=== PATIENT | male | born 1965 | race Caucasian/White ===

== ENCOUNTER 2019-10-16 07:02 | Emergency (ER) | payer BC, OTHER ==
[~2019-10-16] VITALS: Ht 190.5 cm; Wt 94.3 kg
[2019-10-16] MEDS ORDERED: AUGMENTIN 875-1 EACH PO (08:02)
[2019-10-16] MEDS ORDERED: TRAMADOL 50 MG50 MG PO (08:02)
[2019-10-16 09:05] VITALS: BP 112/80
== END 2019-10-16 08:30 | disposition home or self-care (01) ==
LOC: ER 07:02
DX: S61.214A Laceration without foreign body of right ring finger without damage to nail, initial encounter (principal); S61.216A Laceration without foreign body of right little finger without damage to nail, initial encounter; S61.210A Laceration without foreign body of right index finger without damage to nail, initial encounter; S60.412A Abrasion of right middle finger, initial encounter; S50.812A Abrasion of left forearm, initial encounter; Z90.49 Acquired absence of other specified parts of digestive tract; W54.0XXA Bitten by dog, initial encounter; Y93.89 Activity, other specified; Y92.89 Other specified places as the place of occurrence of the external cause; Y99.8 Other external cause status

== ENCOUNTER 2020-06-07 02:43 | Emergency (ER) | payer BC, OTHER ==
[~2020-06-07] VITALS: Ht 190.5 cm; Wt 97.5 kg
[~2020-06-07 02:43] MED LIST: AUGMENTIN 875-1 EACH PO; TRAMADOL 50 MG50 MG PO
[2020-06-07 03:50] LABS: EOSINOPHILS 0.7 % (0.0-3.0)
[2020-06-07 03:52] LABS: ABSOLUTE NEUTROPHILS 9.1 thou/uL (1.4-8.2); BASOPHILS 0.4 % (0.0-2.0); HEMATOCRIT 47.6 % (42.0-52.0); HEMOGLOBIN 16.3 gm/dL (14.0-18.0); LYMPHOCYTES 20.8 % (24.0-44.0); MCH 31.4 pg (26.0-34.0); MCHC 34.3 g/dL (28.0-37.0); MCV 91.6 fL (80.0-100.0); MONOCYTES 5.3 % (1.0-8.0); PLATELET COUNT 228 thou/uL (150-400); POLYS 72.8 % (36.0-66.0); RBC 5.19 mil/uL (4.50-6.00); RDW 13.7 % (10.5-14.5); WBC 12.5 thou/uL (4.0-11.0)
[2020-06-07 03:54] LABS: ANION GAP 6 mmol/L (7-16); BUN 14 mg/dL (7-18); CALCIUM 9.4 mg/dL (8.5-10.1); CHLORIDE 104 mmol/L (98-107); CO2 35 mmol/L (21-32); CREATININE 1.3 mg/dL (0.7-1.3); GLUCOSE 106 mg/dL (74-106); POTASSIUM 4.1 mmol/L (3.5-5.1); SODIUM 145 mmol/L (136-145)
[2020-06-07 04:05] LABS: ALBUMIN 3.7 g/dL (3.4-5.0); LIPASE 92 U/L (73-393); SGOT 19 U/L (15-37); SGPT 28 U/L (30-65); TOTAL BILIRUBIN 0.7 mg/dL (0.2-1.0); TOTAL PROTEIN 6.9 g/dL (6.4-8.2); TROPONIN-I <0.06 ng/mL (<0.06)
[2020-06-07] MEDS ORDERED: ZOFRAN ODT4 MG PO (06:26)
[2020-06-07] MEDS ORDERED: PROTONIX40 MG PO (06:26)
[2020-06-07 06:40] VITALS: BP 112/65
[2020-06-07 06:56] LABS: HEMATOCRIT 48.6 % (42.0-52.0); HEMOGLOBIN 16.5 gm/dL (14.0-18.0); MCH 31.2 pg (26.0-34.0); MCV 91.8 fL (80.0-100.0); RBC 5.3 mil/uL (4.50-6.00); RDW 13.8 % (10.5-14.5); WBC 17.5 thou/uL (4.0-11.0)
--- NOTE | 2020-06-08 16:01 | EKG ---
[facility] [place] [address] ELECTROCARDIOGRAM REPORT Name: ANA TEIXEIRA [facility] [id number] Admission: 06/07/20 Attend Phys: Discharge: 06/07/20 Date of : 69 Report #: [id number] THIS REPORT FOR: cc: Eran Schwartz James A. DO Couchonnal, Luis F. 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
--- NOTE | 2020-06-08 16:01 | EKG ---
[facility] [place] [address] ELECTROCARDIOGRAM REPORT Name: ANA TEIXEIRA Room #: [facility].#: [id number] Admission: 06/07/20 Attend Phys: Discharge: 06/07/20 Date of : 69 Report #: [id number] THIS REPORT FOR: cc: Eran Schwartz James A. DO Couchonnal, Luis F. 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
== END 2020-06-07 06:32 | disposition home or self-care (01) ==
LOC: ER 02:43
PROVIDERS: Emergency Medicine; Student in an Organized Health Care Education/Training Program
DX: K92.2 Gastrointestinal hemorrhage, unspecified (principal); R11.10 Vomiting, unspecified; R19.7 Diarrhea, unspecified; R04.2 Hemoptysis; B20 Human immunodeficiency virus [HIV] disease; Z90.89 Acquired absence of other organs; Z98.890 Other specified postprocedural states; Z79.2 Long term (current) use of antibiotics; Z79.899 Other long term (current) drug therapy

== ENCOUNTER → 2020-06-23 | Outpatient (CLI) | payer BC, OTHER ==
[~2020-06-23] MED LIST changes: +PROTONIX40 MG PO; +ZOFRAN ODT4 MG PO
== END ==
LOC: MRI 07:15
PROVIDERS: ATTEND Family Medicine
DX: M51.27 Other intervertebral disc displacement, lumbosacral region (principal); M47.817 Spondylosis without myelopathy or radiculopathy, lumbosacral region; M48.07 Spinal stenosis, lumbosacral region

== ENCOUNTER → 2020-07-20 | Outpatient (CLI) | payer BC, OTHER ==
[~2020-07-20] VITALS: Ht 190.5 cm; Wt 95.3 kg
[~2020-07-20] MED LIST changes: +BIKTARVY 50-201 EACH PO; +CELEXA 10 MG TA10 M1 PO; +CHOLESTYRAMINE P4 GM PO; +NABUMETONE 500500 M1 PO; +PRAVACHOL40 MG PO
--- NOTE | ~2020-07-20 | HPC ---
[facility] [address] [place] [address] PAIN MANAGEMENT CONSULTATION Name: ANA TEIXEIRA Room #: REG JANETTE Pennie#: [id number] Admission: 07/20/20 Attend Phys: Eran Cleveland DO Discharge: Date of : 69 Report #: [id number] CC: Eran Hoffman DATE OF SERVICE: 07/20/2020 REFERRING PHYSICIAN: Dr. Eran Schwartz. CHIEF COMPLAINT: Low back pain, right lower extremity pain with paresthesias. HISTORY OF PRESENT ILLNESS: As you know, the patient is a very pleasant 55-year-old male who reports longstanding history of low back pain, right lower extremity pain with paresthesias. He states pain began in 02/2020. He denies injury or trauma that may have led to symptom development. He states the pain began to intensify after trying conservative treatment such as [id number] medications, rest and relaxation. With increasing pain, the patient sought evaluation through his primary care team who trialed initially conservative treatment, but was not seeing much in the way of improvement. He has had treatment for this in the past with cortisone injections and physical therapy. Due to lack of improvement with those treatments, the patient was sent for MRI. Findings of MRI showed changes at the L4-L5 level and L5-S1 level, which was consistent with the patient's symptoms. He was subsequently referred to our clinic to discuss interventional treatments. The patient indicates today pain is continuous. He describes the pain as aching, shooting, numbness and tingling, places current pain score 3/10, daily average at 3/10, worst pain has been a 7/10. The patient states pain is exacerbated with very specific positions while standing and walking as well as sitting for any length of time. Pain does disrupt sleep and work. He states heating pads tend to improve pain. He has been referred to our service to discuss treatment options for the findings at the L4-L5 and L5-S1 level consistent with lumbar radiculopathy. PAST MEDICAL HISTORY: 1. Dyslipidemia. 2. Depression. 3. HIV. PAST SURGICAL HISTORY: 1. Eye surgery. 2. Excision of skin cancers, squamous as well as basal cell. 3. Hepatitis A. SOCIAL HISTORY: The patient denies current tobacco use. Denies IV or illicit drug use. Denies any chronic alcohol use. 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 He is working, not receiving workmen's compensation nor is he trying to obtain disability benefits. He is not in litigation in regards to pain. REVIEW OF SYSTEMS: Positive for weight change, frequent and recurrent headaches, eye disease, wearing corrective eyewear, developmental cataracts, constipation, for frequent urination, nocturia, incontinence and dribbling to urine, rashes and itching, numbness and tingling sensations involving the right lower extremity, memory loss with confusion, excessive thirst, urination, heat and cold intolerance. All other review of systems negative per 12-point review of systems other than those listed in history of present illness. Pain impact score 45/70 indicating severe interference of daily activities secondary to pain. IMAGING: MRI lumbar spine obtained 06/23/2020 shows moderate levels of spondylosis, greatest at the L4-L5 and L5-S1 level. There is a broad-based central disk protrusion with mild left lateral recess narrowing. There are advanced degenerative changes at the L5-S1 level with right-sided neuroforaminal stenosis and moderate right neuroforaminal narrowing causing effacement of the L5 nerve root, consistent with the patient's symptoms. PHYSICAL EXAMINATION: VITAL SIGNS: Blood pressure 109/76, pulse is 68, respiratory rate 20 and unlabored. The patient is 99% on room air, height 6 feet 3 inches tall, weight 210 pounds, BMI calculated 26.2. GENERAL: Well-developed, well-nourished, well-hydrated 55-year-old male appearing stated age, pain is rated today 3-7/10. HEENT: Normocephalic, atraumatic. Pupils equal, round and reactive. Extraocular muscles are intact. NEUROLOGIC: Speech fluent. The patient deemed a good historian. LUNGS: Clear, no wheeze, rhonchi, or rales. CARDIOVASCULAR: Regular. No appreciable gallop, no rub. ABDOMEN: Soft, nontender, nondistended, normoactive bowel sounds. EXTREMITIES: Show no clubbing, no cyanosis. No appreciable edema. MUSCULOSKELETAL: Lower extremity strength appears symmetrical 5/5, intact to light touch from L1 through S2 dermatomes. Seated straight leg raising negative. Supine straight leg raising positive on the right. Juany's test is negative. Modified Gaenslen's is positive for axial low back pain. Ankle clonus negative. Babinski is negative. The patient is able to toe walk, heel walk without complications. Tandem walk is normal. ASSESSMENT: 1. Symptomatic lumbar radiculopathy. 2. Neuroforaminal stenosis of the lumbar spine. 3. Displacement of lumbar intervertebral disk with radiculopathy. 4. Facet arthropathy of the lumbar spine. 5. Chronic intractable pain. PLAN: 1. Based on today's physical exam and history the patient has provided, the description the patient uses in regards to pain as well as the distribution of symptoms, likely source of the patient's symptoms is a lumbar radiculopathy. We discussed with the patient the findings of his MRI and how they correlate to his current symptoms. It does appear he is suffering symptoms mainly from the L5-S1 level and specifically the neuroforaminal stenosis. We discussed the findings of this MRI over an 18-minute period of time and then discussed the treatment options we have available. The following was discussed with the patient today. We discussed physical therapy, stretching exercises and core strengthening as a treatment option. We discussed medication management utilizing neuropathic pain medications and a consistent nonsteroidal anti-inflammatory. We discussed lumbar epidural injections for which the patient was referred to our clinic. We also discussed surgical options, both the spinal cord stimulator technology as well as traditional decompression. After reviewing risks and benefits of all proposed treatment options, the patient chose to make adjustments in medication management. 2. The patient will be started on nabumetone 500 mg dose 1 tab p.o. t.i.d. This is added for anti-inflammatory effects. The patient has noted improvement in symptoms with anti-inflammatories in the past, but has not used them consistently. We will try the patient on a consistent dose of anti-inflammatory. He will watch for side effects of dyspepsia, worsening of blood pressure, lower extremity edema. If he notes any of these side effects, discontinue immediately, call for further instructions. If he is noting no side effects, but improvement in symptoms, continue the medication as directed. I have given the prescription today with #90 tablets, 2 refills, 3 months' worth of medication. 3. The patient and I did discuss the possibility of undergoing a lumbar epidural injection under fluoroscopic guidance to address symptoms. He is going to consider this as an option. At this point, he wishes to trial a more conservative approach initially and then move forward with interventional treatments if necessary. 4. We plan to see the patient back in follow-up visit in approximately 1 month. At that time, review the efficacy of today's adjustments in medication management, determine if moving forward with other treatment options or adjustments in medical therapy might be necessary. 5. We wish to thank Dr. Schwartz for the referral of the patient to our clinic. We will keep you apprised of his response to treatment as we address lumbar radiculopathy. Again, we wish to thank you for the opportunity to see the patient in consultation. By: [id number] Eran Cleveland DO /nt
[2020-07-20 08:07] VITALS: BP 109/76
--- NOTE | 2020-07-20 08:25 | NUR ---
Pain Clinic Assessment: 1. History of Osteoarthritis: Not Applicable History of Rheumatoid Arthritis: Not Applicable 2. Height: 6 ft. 3 in. 190.5 cm. Weight: 210.0 lb. oz. 95.256 kg. Patient's BMI: 26.2 3. Vital Signs: BP: 109/76 Pulse: 68 Resp: 20 Temp: 02 Sat: 99 ECG Mon: 4. Pain Intensity: 3-7 5. Fall Risk: Dizziness: N Needs help standing or walking: N Fallen in the last 3 months: N Fall risk comments: 6. Patient on Blood Thinner: None 7. History of Hypertension: N 8. Opioid Therapy greater than 6 weeks: N Opiate Contract Signed: 9. Risk Assessment Tool Provided: 10-DISTANT PAST 10. Functional Assessment Tool: 11. Recreational Drug Use: Past greater than 3 mos Drug Type: Tobacco Use: Never Smoker Tobacco Type: Amount or Packs/day: How Many Years: Alcohol Use: Past use Frequency: Quant: IN COLLEGE
== END ==
LOC: PAIN 06:41
PROVIDERS: ATTEND Anesthesiology Pain Medicine
DX: M51.16 Intervertebral disc disorders with radiculopathy, lumbar region (principal); M47.26 Other spondylosis with radiculopathy, lumbar region; G89.29 Other chronic pain; M79.604 Pain in right leg; R20.2 Paresthesia of skin; F32.9 Major depressive disorder, single episode, unspecified; B20 Human immunodeficiency virus [HIV] disease; Z79.899 Other long term (current) drug therapy

== ENCOUNTER → 2020-08-10 | Outpatient (CLI) | payer BC, OTHER ==
[~2020-08-10] VITALS: Ht 182.9 cm; Wt 95.7 kg
--- NOTE | 2020-08-10 09:11 | NUR ---
Pain Clinic Assessment: 1. History of Osteoarthritis: Not Applicable History of Rheumatoid Arthritis: Not Applicable 2. Height: ft. in. cm. Weight: lb. oz. kg. Patient's BMI: 3. Vital Signs: BP: Pulse: Resp: Temp: 02 Sat: ECG Mon: 4. Pain Intensity: 2 5. Fall Risk: Dizziness: Needs help standing or walking: Fallen in the last 3 months: Fall risk comments: 6. Patient on Blood Thinner: None 7. History of Hypertension: N 8. Opioid Therapy greater than 6 weeks: N Opiate Contract Signed: 9. Risk Assessment Tool Provided: 10-DISTANT PAST 10. Functional Assessment Tool: 11. Recreational Drug Use: Past greater than 3 mos Drug Type: Tobacco Use: Former Smoker Tobacco Type: Amount or Packs/day: How Many Years: Alcohol Use: Past use Frequency: Quant:
[2020-08-10 09:16] VITALS: BP 107/74
--- NOTE | 2020-08-11 11:11 | HPC ---
[facility] [address] [place] [address] PAIN MANAGEMENT CONSULTATION Name: ANA TEIXEIRA Room #: REG JANETTE Pennie#: [id number] Admission: 08/10/20 Attend Phys: Eran Cleveland DO Discharge: Date of : 69 Report #: [id number] CC: Eran Hoffman DATE OF SERVICE: 08/10/2020 REFERRING PHYSICIAN: Eran Schwartz DO CHIEF COMPLAINT: Low back pain, right lower extremity pain with paresthesias. HISTORY OF PRESENT ILLNESS: As you know, the patient is a very pleasant 55-year-old male with longstanding history of low back pain, right lower extremity pain and paresthesias that began in 02/2020. He denies injury or trauma that may have led to symptom development. He had failed conservative treatment and was subsequently referred to our clinic where he was seen 07/20/2020, diagnosis of symptomatic lumbar radiculopathy secondary to neural foraminal stenosis and displacement of lumbar intervertebral disk. We trialed the patient on conservative medication management per his request. He reports good efficacy with the nabumetone therapy, but soon lost efficacy with the medication. He returns today in followup visit to undergo first in the series of lumbar epidural injections. He reports pain level of around 2/10 today. He did report that the nabumetone is going to be continued as he does feel it is providing benefit, but his pain has broken through and wishes an epidural injection today. He returns to undergo epidural injection under fluoroscopic guidance proposed at our first visit. ALLERGIES: NO REPORTED DRUG ALLERGIES. CURRENT MEDICATIONS: Citalopram, cholestyramine, pravastatin, biktarvy, nabumetone. SOCIAL HISTORY: The patient denies current tobacco use. Denies IV or illicit drug use. Denies any chronic alcohol use. 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 He is working, not receiving workmen's compensation, unaccompanied today. IMAGING: No new imaging available. PHYSICAL EXAMINATION: GENERAL: Well-developed, well-nourished, well-hydrated 55-year-old male appearing stated age, pain is rated today somewhere between 2-3/10. HEENT: Normocephalic, atraumatic. Pupils equal, round and reactive. Speech fluent. EXTREMITIES: Show no clubbing, no cyanosis, no edema. MUSCULOSKELETAL: Lower extremity strength is symmetrical again today 5/5. Seated straight leg raising negative. Supine straight leg raising remains positive on the right at about 45-degree angle. Ankle clonus negative. Babinski is negative. ASSESSMENT: 1. Symptomatic lumbar radiculopathy. 2. Neural foraminal stenosis of lumbar spine. 3. Displacement of lumbar intervertebral disk with radiculopathy. 4. Facet arthropathy of the lumbar spine. 5. Chronic intractable pain. PLAN: 1. The patient returns today in followup visit requesting to undergo lumbar epidural injection under fluoroscopic guidance. He had trialled medication management with good effects initially, but we have lost efficacy over the last couple of days. He states pain level is now 2-3/10. He returns for an epidural injection under fluoroscopic guidance, though he does wish to continue the nabumetone as he has found benefit with its use. We have described to the patient the risks and benefits of a lumbar epidural injection. These risks include but are not necessarily limited to bleeding, bruising, infection, worsening pain, no relief of pain, also risk of temporary or permanent muscle weakness, temporary or permanent nerve damage, possible paralysis and . The patient states understood and wished to proceed. 2. No medication changes made at today's visit. The patient will continue current medical therapy as prior prescribed. 3. We plan to see the patient back in followup visit in approximately 30 days. At that time, review efficacy of today's epidural injection and determine next in the series might be necessary. PROCEDURE NOTE DESCRIPTION OF PROCEDURE: L5-S1 right paramedian epidural steroid injection under fluoroscopic guidance. This is the first procedure of the first series that the patient is undergoing. After obtaining written consent, the patient was taken back to the fluoroscopy suite, placed in a prone position with pillow under the abdomen to decrease lumbar lordosis. The skin overlying the lumbosacral area was then prepped and draped in aseptic fashion. The L5-S1 vertebral interspace was then identified by AP fluoroscopy. The skin and subcutaneous tissue overlying the target site of injection was anesthetized with 3 mL 1% lidocaine. A 20-gauge 3-1/2 inch Tuohy needle was then advanced under fluoroscopic guidance towards the epidural space using a right paramedian approach. The epidural space was identified using loss of resistance to air technique. After negative aspiration for heme or cerebrospinal fluid, a total of 1 mL of Omnipaque was injected. A lumbar epidurogram was confirmed using both AP and lateral fluoroscopy. After negative aspiration for heme or cerebrospinal fluid, 5 mL of a solution containing 2 mL 40 mg per mL, 80 mg total triamcinolone along with 3 mL of lidocaine 1% was injected in increments. Contrast spread was noted posterior epidural space. The needle was then retracted approximately half way and needle tract flushed with 1 mL of 1% lidocaine. Needle was then removed. There were no apparent sensory or motor deficits in the lower extremity following the procedure. A sterile bandage was placed over the injection site. The heart rate, pulse, oximetry and blood pressure were continuously monitored after the procedure. There were no apparent complications. The patient tolerated the procedure well and was carefully escorted to the recovery room in stable condition. There were no apparent complications. After meeting discharge criteria, the patient was then discharged home. <ELECTRONICALLY SIGNED> By: Eran Cleveland DO 08/11/20 1111 [id number] Eran Cleveland DO /nt
== END | disposition home or self-care (01) ==
LOC: PAIN 06:51
PROVIDERS: ATTEND Anesthesiology Pain Medicine
DX: M51.16 Intervertebral disc disorders with radiculopathy, lumbar region (principal); M48.061 Spinal stenosis, lumbar region without neurogenic claudication; M47.26 Other spondylosis with radiculopathy, lumbar region; G89.29 Other chronic pain; Z98.890 Other specified postprocedural states; Z79.899 Other long term (current) drug therapy; Z79.891 Long term (current) use of opiate analgesic

== ENCOUNTER → 2020-09-28 | Outpatient (CLI) | payer BC, OTHER ==
[~2020-09-28] VITALS: Ht 190.5 cm; Wt 95.3 kg
[~2020-09-28] MED LIST changes: +LYRICA 50 MG50 MG PO
[2020-09-28 08:08] VITALS: BP 120/76
--- NOTE | 2020-09-28 08:17 | NUR ---
Pain Clinic Assessment: 1. History of Osteoarthritis: Not Applicable History of Rheumatoid Arthritis: Not Applicable 2. Height: 6 ft. 3 in. 190.5 cm. Weight: 210.0 lb. oz. 95.256 kg. Patient's BMI: 26.2 3. Vital Signs: BP: 120/76 Pulse: 75 Resp: 16 Temp: 02 Sat: 98 ECG Mon: 4. Pain Intensity: 4 5. Fall Risk: Dizziness: N Needs help standing or walking: N Fallen in the last 3 months: N Fall risk comments: 6. Patient on Blood Thinner: None 7. History of Hypertension: N 8. Opioid Therapy greater than 6 weeks: N Opiate Contract Signed: 9. Risk Assessment Tool Provided: 10-DISTANT PAST 10. Functional Assessment Tool: 11. Recreational Drug Use: Past greater than 3 mos Drug Type: Tobacco Use: Former Smoker Tobacco Type: Amount or Packs/day: How Many Years: Alcohol Use: Past use Frequency: Quant:
--- NOTE | 2020-09-29 12:34 | HPC ---
[facility] [address] [place] [address] PAIN MANAGEMENT CONSULTATION Name: ANA TEIXEIRA Room #: REG JANETTE Pennie#: [id number] Admission: 09/28/20 Attend Phys: Eran Cleveland DO Discharge: Date of : 69 Report #: [id number] THIS REPORT FOR: cc: Eran Schwartz James A. DO Johnson, James E. DO ~ DATE OF SERVICE: 09/28/2020 CHIEF COMPLAINT: Low back pain, right lower extremity pain and paresthesias. HISTORY OF PRESENT ILLNESS: As you know, the patient is a very pleasant 55-year-old male with longstanding history of low back pain, right lower extremity pain with paresthesias began in 02/2020. He denied injury or trauma that may have led to symptom development. He failed conservative treatment and was subsequently referred to our clinic to undergo lumbar epidural injections under fluoroscopic guidance secondary to a neural foraminal stenosis and displacement of lumbar intervertebral disk, leading to the lumbar radicular pain. The patient underwent the first in a series of lumbar epidural injections per Dr. Schwartz's request after we received authorization on 08/10/2020. He reported about a week worth of improvement in symptoms with subsequent recurrence. He reports about a 50% improvement in overall pain during that week. He returns today in followup visit to discuss options for treatment and to begin the process of possible necessary prior authorization to undergo the next in the series of epidural injections. The patient reports today pain level of 4/10, but can reach as high as 10/10. He denies new injury, trauma or any changes in medical history since our last visit. ALLERGIES: No reported drug allergies. CURRENT MEDICATIONS: Nabumetone 500 mg 3 times a day, Biktarvy 50/200/25 mg once a day, pravastatin 40 mg once a day, cholestyramine 4 grams twice a day, citalopram 10 mg once a day. SOCIAL HISTORY: The patient denies current tobacco use. Denies IV or illicit drug use. Denies any chronic alcohol use. 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 IMAGING: No new imaging available. PHYSICAL EXAMINATION: VITAL SIGNS: Blood pressure 120/76, pulse 75, respiratory rate 16 and unlabored. The patient is 98% on room air, height 6 feet 3 inches tall, weight 210 pounds, BMI calculated 26.2. GENERAL: Well-developed, well-nourished, well-hydrated 55-year-old male appearing stated age, placing current pain score around 4/10. [place] [address] PAIN MANAGEMENT CONSULTATION Name: ANA TEIXEIRA Room #: REG CLMaryann Casper#: [id number] Admission: 09/28/20 Attend Phys: Eran Cleveland DO Discharge: Date of : 69 Report #: [id number] HEENT: Normocephalic, atraumatic. Pupils equal, round and reactive. Speech is fluent. EXTREMITIES: Show no clubbing, no cyanosis. No appreciable edema. MUSCULOSKELETAL: Lower extremity strength is symmetrical again today 5/5. Muscle bulk and tone is symmetrical in comparing left lower extremity to right. Seated straight leg raising negative. Supine straight leg raising remains positive. Juany's test negative. Gait mildly antalgic favoring right lower extremity over left. Ankle clonus negative. Babinski is negative. Lumbar provocation testing is met with increasing pain mainly with rotation and lateral flexion to the right. ASSESSMENT: 1. Symptomatic lumbar radiculopathy. 2. Neural foraminal stenosis of the lumbar spine. 3. Displacement of lumbar intervertebral disk with radiculopathy. 4. Facet arthropathy of the lumbar spine. 5. Chronic intractable pain. PLAN: 1. The patient returns today in followup visit indicating he has received improvement in symptoms of up to about 50% for about 1 week with the epidural injection. He states he was able to go about more of his activities of daily living without significant pain. He has had a slow and progressive return of symptoms, now reporting pain score at about 4/10. He returns to discuss options for treatment today including the possibility of undergoing next in the series of epidural injections. He has had trial with gabapentin in the past, but apparently this led to no improvement in symptoms and some side effects that he could not tolerate. He wishes to discuss this as well. 2. The patient and I did discuss the possibility of starting him back on a neuropathic medication. The fact that he had difficulty with gabapentin, does not preclude the family of medications to be utilized. We recommend a trial with Lyrica given the lack of efficacy and side effects with gabapentin. We will start him at 50 mg 1 tab p.o. at bedtime. He will continue for 5 nights, then increase to 2 tabs over 100 mg p.o. at bedtime for another 5 nights, no improvement in symptoms, no side effects of sleepiness, disorientation, confusion, mental slowing or slow mentation, then increase to 1 tab in the morning, 2 tablets at night. He was given #90 tablets. The patient was advised anytime during the titration, if he notes improvement in symptoms, stabilize at that dose, no further escalation. If he has questions or concerns in regards to medication, contact our clinic. 3. We will begin the process of obtaining any prior authorizations for the patient to undergo next in the series of lumbar epidural injections. I am hopeful we will have this information quite quickly and will be able to see the patient back in followup visit. We wish to confirm if any prior authorizations [address] [address] PAIN MANAGEMENT CONSULTATION Name: ANA TEIXEIRA Room #: REG JANETTE Casper#: [id number] Admission: 09/28/20 Attend Phys: Eran Cleveland DO Discharge: Date of : 69 Report #: [id number] are necessary, those have been completed before he returns to undergo the next in the series of epidural injections proposed for next Sunday. <ELECTRONICALLY SIGNED> By: Eran Cleveland DO 09/29/20 1234 1119 Eran Cleveland DO /nt
== END ==
LOC: PAIN 06:43
PROVIDERS: ATTEND Anesthesiology Pain Medicine
DX: M51.16 Intervertebral disc disorders with radiculopathy, lumbar region (principal); G89.4 Chronic pain syndrome; M48.061 Spinal stenosis, lumbar region without neurogenic claudication; Z79.899 Other long term (current) drug therapy; Z79.891 Long term (current) use of opiate analgesic

== ENCOUNTER → 2020-10-05 | Outpatient (CLI) | payer BC, OTHER ==
[~2020-10-05] VITALS: Ht 190.5 cm; Wt 95.3 kg
[2020-10-05 14:32] VITALS: BP 113/75
--- NOTE | 2020-10-05 14:43 | NUR ---
Pain Clinic Assessment: 1. History of Osteoarthritis: Not Applicable History of Rheumatoid Arthritis: Not Applicable 2. Height: 6 ft. 3 in. 190.5 cm. Weight: 210.0 lb. oz. 95.256 kg. Patient's BMI: 26.2 3. Vital Signs: BP: 113/75 Pulse: 73 Resp: 16 Temp: 02 Sat: 96 ECG Mon: 4. Pain Intensity: 2 5. Fall Risk: Dizziness: N Needs help standing or walking: N Fallen in the last 3 months: N Fall risk comments: 6. Patient on Blood Thinner: None 7. History of Hypertension: N 8. Opioid Therapy greater than 6 weeks: N Opiate Contract Signed: 9. Risk Assessment Tool Provided: 10-DISTANT PAST 10. Functional Assessment Tool: 11. Recreational Drug Use: Past greater than 3 mos Drug Type: Tobacco Use: Former Smoker Tobacco Type: Amount or Packs/day: How Many Years: Alcohol Use: Past use Frequency: Quant:
--- NOTE | 2020-10-06 11:20 | HPC ---
[facility] [place] [address] PAIN MANAGEMENT CONSULTATION Name: ANA TEIXEIRA Room #: REG JANETTE Diaz.#: [id number] Admission: 10/05/20 Attend Phys: Eran Cleveland DO Discharge: Date of : 69 Report #: [id number] THIS REPORT FOR: cc: Eran Schwartz James A. DO Johnson, James E. DO ~ DATE OF SERVICE: 10/05/2020 REFERRING PHYSICIAN: Eran Schwartz MD CHIEF COMPLAINT: Low back pain, right lower extremity pain with paresthesias. HISTORY OF PRESENT ILLNESS: As you know, the patient is a very pleasant 55-year-old male who has returned today in followup visit to undergo the first in a series of lumbar epidural injections under fluoroscopic guidance. We saw the patient last week on 09/28/2020 where we chose to move forward with lumbar epidural injections. We are seeing less and less efficacy with medication management. He returns today to undergo the first in a series of lumbar epidural injections. He is placing his current pain score at 2/10. He reports no injury or trauma since our visit of 09/28/2020. There have been no changes in his medical history that would preclude him from undergoing an epidural injection today. ALLERGIES: No known drug allergies. CURRENT MEDICATIONS: Nabumetone, Biktarvy, pravastatin, cholestyramine, citalopram. SOCIAL HISTORY: The patient denies current tobacco use. Denies IV or illicit drug use. Denies any chronic alcohol use. 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 He is working, not receiving workmen's compensation, unaccompanied today. IMAGING: No new imaging available. PHYSICAL EXAMINATION: VITAL SIGNS: Blood pressure 113/75, pulse 73, respiratory rate 16 and unlabored. The patient is 96% on room air, height 6 feet 3 inches tall, weight 210 pounds, BMI calculated 26.2. GENERAL: Well-developed, well-nourished, well-hydrated, 55-year-old male appearing stated age, pain is rated today at 2/10. HEENT: Normocephalic, atraumatic. Pupils are equal, round and reactive. The patient is wearing a mask in compliance with COVID-19 regulations. EXTREMITIES: Show no clubbing, no cyanosis. No appreciable edema. MUSCULOSKELETAL: Lower extremity strength once again is symmetrical. Muscle bulk and tone equal and symmetrical in comparing lower extremities. Seated [facility] [address] [place] [address] PAIN MANAGEMENT CONSULTATION Name: ANA TEIXEIRA Room #: REG JANETTE DiazKristofer#: [id number] Admission: 10/05/20 Attend Phys: Eran Cleveland DO Discharge: Date of : 69 Report #: [id number] straight leg raising negative. Supine straight leg raising remains positive. Juany's test negative. Modified Gaenslen's positive for axial low back pain. Ankle clonus negative. Babinski is negative. ASSESSMENT: 1. Symptomatic lumbar radiculopathy. 2. Neural foraminal stenosis of the lumbar spine. 3. Displacement of lumbar intervertebral disk with radiculopathy. 4. Facet arthropathy of the lumbar spine. 5. Chronic intractable pain. PLAN: 1. The patient returns today in followup visit to undergo the first in a series of lumbar epidural injections under fluoroscopic guidance to address lumbar radicular symptoms. The patient has been advised of the risks and the benefits of the lumbar epidural injection. These risks include, but are not necessarily limited to bleeding, bruising, infection, worsening pain, no relief of pain, also risk of temporary or permanent muscle weakness, temporary or permanent nerve damage, possible paralysis, post-dural puncture headache and . The patient states understood and wished to proceed. 2. No medication changes made at today's visit. The patient will continue current medical therapy as prior prescribed. 3. We plan to see the patient back in follow-up visit in approximately 1 month. At that time, review efficacy of today's epidural injection and determine if next in the series might be necessary. We are hopeful the patient will see good and prolonged benefit with today's procedure. We will see him back in 30 days. PROCEDURE NOTE: DESCRIPTION OF PROCEDURE: L5-S1 right parasagittal epidural steroid injection under fluoroscopic guidance. This is the first procedure of the first series that the patient is undergoing. After obtaining written consent, the patient was taken back to the fluoroscopy suite, placed in a prone position with pillow under the abdomen to decrease lumbar lordosis. The skin overlying the lumbosacral area was then prepped and draped in aseptic fashion. The L5-S1 vertebral interspace was then identified by AP fluoroscopy. The skin and subcutaneous tissue overlying the target site of injection was anesthetized with 3 mL 1% lidocaine. A 20-gauge 3-1/2 inch Tuohy needle was then advanced under fluoroscopic guidance towards the epidural space using a right parasagittal approach. The epidural space was identified using loss of resistance to air technique. After negative aspiration for heme or cerebrospinal fluid, a total of 1 mL of Omnipaque was injected. A lumbar epidurogram was confirmed using both AP and lateral [address] [address] PAIN MANAGEMENT CONSULTATION Name: ANA TEIXEIRA Room #: REG JANETTE Casper#: [id number] Admission: 10/05/20 Attend Phys: Eran Cleveland DO Discharge: Date of : 69 Report #: [id number] fluoroscopy. After negative aspiration for heme or cerebrospinal fluid, 5 mL of a solution containing 2 mL 40 mg per mL, 80 mg total triamcinolone along with 3 mL of lidocaine 1% was injected in increments. Contrast spread was noted in posterior epidural space. The needle was then retracted approximately half way and needle tract flushed with 1 mL of 1% lidocaine. Needle was then removed. There were no apparent sensory or motor deficits in the lower extremity following the procedure. A sterile bandage was placed over the injection site. The heart rate, pulse, oximetry and blood pressure were continuously monitored after the procedure. There were no apparent complications. The patient tolerated the procedure well and was carefully escorted to the recovery room in stable condition. There were no apparent complications. After meeting discharge criteria, the patient was then discharged home. <ELECTRONICALLY SIGNED> By: Eran Cleveland DO 10/06/20 1120 1642 2318 Eran Cleveland DO /nt
== END | disposition home or self-care (01) ==
LOC: PAIN 06:50
PROVIDERS: ATTEND Anesthesiology Pain Medicine
DX: M51.16 Intervertebral disc disorders with radiculopathy, lumbar region (principal); M47.26 Other spondylosis with radiculopathy, lumbar region; M48.061 Spinal stenosis, lumbar region without neurogenic claudication; G89.29 Other chronic pain; Z98.890 Other specified postprocedural states; Z79.899 Other long term (current) drug therapy; Z87.891 Personal history of nicotine dependence

== ENCOUNTER → 2020-11-23 | Outpatient (CLI) | payer BC, OTHER ==
[~2020-11-23] VITALS: Ht 190.5 cm; Wt 95.6 kg
[~2020-11-23] MED LIST changes: +MELATONIN10 M1 PO; +NEURONTIN 300M300 M2 PO
[2020-11-23 08:18] VITALS: BP 115/68
--- NOTE | 2020-11-23 08:44 | NUR ---
Pain Clinic Assessment: 1. History of Osteoarthritis: Not Applicable History of Rheumatoid Arthritis: Not Applicable 2. Height: 6 ft. 3 in. 190.5 cm. Weight: 210.8 lb. oz. 95.618 kg. Patient's BMI: 26.3 3. Vital Signs: BP: 115/68 Pulse: 79 Resp: 14 Temp: 02 Sat: 98 ECG Mon: 4. Pain Intensity: 3-4 5. Fall Risk: Dizziness: N Needs help standing or walking: N Fallen in the last 3 months: N Fall risk comments: 6. Patient on Blood Thinner: None 7. History of Hypertension: N 8. Opioid Therapy greater than 6 weeks: N Opiate Contract Signed: 9. Risk Assessment Tool Provided: 10-DISTANT PAST 10. Functional Assessment Tool: 45/ 11. Recreational Drug Use: Past greater than 3 mos Drug Type: Tobacco Use: Former Smoker Tobacco Type: Amount or Packs/day: How Many Years: Alcohol Use: Past use Frequency: Quant:
--- NOTE | 2020-11-24 10:29 | HPC ---
[facility] [address] [place] [address] PAIN MANAGEMENT CONSULTATION Name: ANA TEIXEIRA Room #: REG JANETTE Pennie#: [id number] Admission: 11/23/20 Attend Phys: Eran Cleveland DO Discharge: Date of : 69 Report #: [id number] THIS REPORT FOR: cc: Eran Schwartz James A. DO Johnson, James E. DO ~ DATE OF SERVICE: 11/23/2020 REFERRING PHYSICIAN: Dr. Eran Schwartz CHIEF COMPLAINT: Low back pain, right lower extremity pain with paresthesias. HISTORY OF PRESENT ILLNESS: As you know, the patient is a very pleasant 55-year-old male with longstanding history of lumbar radiculopathy involving low back and right lower extremity. This began on 02/20/2020 without inciting injury or trauma. We have followed the patient since 06/2020 trialing different medications and epidural injections. He has undergone 2 epidural injections, both of which have provided benefit. He was started on Lyrica to help with neuropathic pain and was getting excellent benefit, but unfortunately he began to experience side effects of left facial droop and somnolence. He subsequently discontinued the medication, symptoms resolved. He returns today to make adjustments in medication management as he does feel the neuropathic medications were beneficial in alleviating symptoms. Today, the patient is reporting pain score 3-4/10. He has suffered no new injury, no new trauma or any changes in medical history other than the side effects to the Lyrica. He has discontinued Lyrica, no side effects have improved. ALLERGIES: No known drug allergies. CURRENT MEDICATIONS: Nabumetone, Biktarvy, pravastatin, cholestyramine, citalopram. SOCIAL HISTORY: The patient denies current tobacco use. Denies IV or illicit drug use. Denies any chronic alcohol use. 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 He is working, not receiving workmen's compensation, unaccompanied today. IMAGING: No new imaging available. PHYSICAL EXAMINATION: VITAL SIGNS: Blood pressure 115/68, pulse 79, respiratory rate 14 and unlabored. The patient 98% on room air, height 6 feet 3 inches tall, weight 210.8 pounds, BMI calculated 26.3. GENERAL: Well-developed, well-nourished, well-hydrated 55-year-old male appearing stated age, pain is rated anywhere from 3-4/10. HEENT: Normocephalic, atraumatic. Pupils equal, [place] [address] PAIN MANAGEMENT CONSULTATION Name: ANA TEIXEIRA Room #: REG [facility].#: [id number] Admission: 11/23/20 Attend Phys: Eran Cleveland DO Discharge: Date of : 69 Report #: [id number] EXTREMITIES: Show no clubbing, no cyanosis, and no edema. MUSCULOSKELETAL: Upper extremity strength, lower extremity strength equal and symmetrical 5/5, intact to light touch from L1 through S2 dermatomes. Seated straight leg raising negative. Supine straight leg raising positive on the right. Juany's test is negative. Gait appears normal. Muscle bulk and tone equal and symmetrical in lower extremities. ASSESSMENT: 1. Symptomatic lumbar radiculopathy. 2. Neural foraminal stenosis of the lumbar spine. 3. Displacement of lumbar intervertebral disk with radiculopathy. 4. Lumbosacral spondylosis with radiculopathy. 5. Facet arthropathy of the lumbar spine. 6. Chronic intractable pain. PLAN: 1. The patient returns today in followup visit having side effects to Lyrica, which include facial droop and increased somnolence in the daytime hours. He has subsequently discontinued this medication, symptoms resolved. He returns today for a rotation in medication to continue neuropathic medications, but hopefully received less side effects. We would recommend that the patient remain off the Lyrica given the facial droop issues and somnolence issues are typical for this medication, but the facial droop has us somewhat concerned. He will discontinue this therapy and we will transition over to gabapentin. 2. The patient was provided prescription of gabapentin 300 mg tablets, he is to take 1 tab in the morning and 2 tablets at night equivalent of 50 mg of Lyrica in the morning and 100 mg at night. He will continue this for 3 nights, no improvement in symptoms, no side effects, then increase to 300 mg morning and 900 mg at night for 3 nights. If no improvement in symptoms, no side effects of sleepiness, disorientation, confusion, mental slowing or in this patient's case. Facial droop, then escalate dose to 600 mg in the morning and 900 mg at night. Continue for 3 more days. If no improvement in symptoms, no side effects, then to 900 mg b.i.d. The patient was given #180 tablets of gabapentin 300 mg to begin this titration. Once we stabilize on the dose, we will provide the patient with long-term prescriptions. 3. We did discuss the possibility of undergoing next in the series of epidural injections. The patient at this time wishes to delay that option. He states that with the medications and the previous epidural injection, he was able to return to exercise routine including jogging since he discontinued the Lyrica. He has been unable to continue to jog. We are hopeful that he can return to his physical activity with the use of the gabapentin without the side effects. We [facility] [address] [place] [address] PAIN MANAGEMENT CONSULTATION Name: ANA TEIXEIRA Room #: REG CLMaryann Casper#: [id number] Admission: 11/23/20 Attend Phys: Eran Cleveland DO Discharge: Date of : 69 Report #: [id number] will determine whether or not the next in the series of epidural injections will be necessary based on his response to the gabapentin. <ELECTRONICALLY SIGNED> By: Eran Cleveland DO 11/24/20 1029 0958 1025 Eran Cleveland DO /nt
== END ==
LOC: PAIN 06:46
PROVIDERS: ATTEND Anesthesiology Pain Medicine
DX: M51.16 Intervertebral disc disorders with radiculopathy, lumbar region (principal); M47.27 Other spondylosis with radiculopathy, lumbosacral region; M48.061 Spinal stenosis, lumbar region without neurogenic claudication; M79.604 Pain in right leg; R20.2 Paresthesia of skin; G89.29 Other chronic pain; Z88.8 Allergy status to other drugs, medicaments and biological substances; Z79.899 Other long term (current) drug therapy